=== PATIENT | male | born 1940 | race Caucasian/White ===

== ENCOUNTER → 2018-05-17 | Outpatient (CLI) | payer OTHER, BC | LOC: FIMAGING 16:27 | PROVIDERS: ATTEND Family Medicine | DX: R91.8 Other nonspecific abnormal finding of lung field (principal); R06.02 Shortness of breath ==

== ENCOUNTER → 2018-07-14 | Outpatient (CLI) | payer OTHER, BC | LOC: BHFA 13:00 | PROVIDERS: ATTEND Internal Medicine Cardiovascular Disease | DX: J45.909 Unspecified asthma, uncomplicated (principal) | CPT/HCPCS: 94060; 94070; 94726; 94729; J7674 ==

== ENCOUNTER 2019-03-13 08:08 | Inpatient (IN) | payer OTHER, BC ==
[2019-03-08 16:49] LABS: PLATELET COUNT 327 10^3/uL (150-400)
--- NOTE | 2019-03-10 16:49 | GHP ---
[f rep st] PREOP HISTORY AND PHYSICAL DATE OF ADMISSION: 03/13/2019 Date of planned procedure is 02/22/2019. PLANNED PROCEDURE: Right total knee arthroplasty. HISTORY OF PRESENT ILLNESS: Percy is a very pleasant 78-year-old male with ongoing bilateral knee, bilateral shoulder problems. Right knee is the worst. He feels that it locks, catches, and gives out on him at times. X-rays show severe tricompartment osteoarthritis. Decision was made to proceed with a total knee arthroplasty on the right. PAST MEDICAL HISTORY: 1. Asthma. 2. Depression. 3. Reflux. 4. Hypertension. 5. Sleep apnea. PAST SURGICAL HISTORY: None. MEDICATIONS: See attached medication list. ALLERGIES: No known drug allergies. SOCIAL HISTORY: He lives in assisted living. He does not smoke, does not drink alcohol. REVIEW OF SYSTEMS: No shortness of breath or chest pain. Otherwise, review of systems is unremarkable. PHYSICAL EXAM: VITALS: A 78-year-old male, 5 feet 8 inches tall, weighs 215 pounds. Blood pressure is 128/69, heart rate is 74. GENERAL: Alert and oriented x3. HEENT: Normocephalic, atraumatic. Extraocular muscles intact. NECK: Supple. There is no lymphadenopathy. No JVD. CHEST: Clear to auscultation. CARDIOVASCULAR: Regular rate and rhythm. ABDOMEN: Soft, nontender, nondistended. EXTREMITIES: Focusing on the right knee: Slight varus alignment, which is correctable passively. He has 120 degrees of flexion , lacks 10 degrees of extension. Calf is soft. 1+ dorsalis pedis and posterior tibial pulses. 5/5 ankle dorsiflexion, plantar flexion, and strength. IMAGING: X-rays, 3 views of the knee are reviewed: Severe tricompartment osteoarthritis with slight varus alignment. ASSESSMENT: Severe right knee osteoarthritis. PLAN: We will proceed with a total knee arthroplasty. Risks and benefits including postoperative stiffness, blood clots, infection were discussed. He understands these risks, wished to proceed. Plan on surgery Wednesday at the hospital. /[id number]/MODL MTDD
[~2019-03-13 08:08] MED LIST: LIDOCAINE 2% 5 ML SDV ONE; PROPOFOL 200 MG/20 ML VIAL ONE; PROPOFOL/EMULSION 500 MG/50 ML BOTTLE IV ONE; ROPIVACAINE HCL 150 MG/30 ML INJ ONE
[2019-03-13] MEDS ORDERED: BUPIVACAINE/DEXTROSE 7.5MG/ML 2 ML SPINAL AMP SP ONE ×2 (08:10→09:53)
[2019-03-13] MEDS ORDERED: ceFAZolin 2 GM/DEXTROSE 100 ML IV ONE (08:19)
[2019-03-13] MEDS ORDERED: LIDOCAINE 1% 2 ML INJ ID PRN (08:20)
[2019-03-13] MEDS ORDERED: LR 1,000 ML IV ONE (08:20)
--- NOTE | 2019-03-13 08:44 | PDHPUP ---
History & Physical Update H&P update statement: This history and physical update is based on an assessment of the patient which was completed after admission or registration (within 24 hours), but prior to the surgery/procedure. H&P update: H&P reviewed & patient examined, no change in patient's condition since H&P completed
[2019-03-13] MEDS ORDERED: MIDAZOLAM 2 MG/2 ML VIAL IVP ONE (08:50)
--- NOTE | 2019-03-13 08:50 | PDANEPAE ---
ANE Past Medical History - Cardiovascular History Hx Hypertension: Yes Hx Arrhythmias: No Hx Chest Pain: No Hx Coronary Artery / Peripheral Vascular Disease: No Hx CHF / Valvular Disease: No Hx Palpitations: No - Pulmonary History Hx COPD: No Hx Asthma/Reactive Airway Disease: No Hx Recent Upper Respiratory Infection: Yes Hx Sleep Apnea: Yes Sleep Apnea Screening Result - Last Documented: Positive Pulmonary History Comment: asthma, 2 weeks ago cold and cough started and still coughing , ED visit may 2018 cxr for shortness of breath, wheezing - Neurologic History Hx Cerebrovascular Accident: No Hx Seizures: No Hx Dementia: No - Endocrine History Hx Diabetes: No - Renal History Hx Renal Disorders: Yes Renal History Comment: prostate seeds for cancer, BPH - Liver History Hx Hepatic Disorders: No - Neurological & Psychiatric Hx Hx Neurological and Psychiatric Disorders: Yes Neurological / Psychiatric History Comment: depression and anxiety - Cancer History Hx Cancer: Yes Cancer History Comment: prostate - Congenital Disorder History Hx Congenital Disorders: No - GI History Hx Gastrointestinal Disorders: Yes Gastrointestinal History Comment: gerd's, bowel resection - Other Health History Other Health History: scoliosis affecting diaphragm, lumbar stenosis, sciatica, chronic pain - Chronic Pain History Chronic Pain: Yes (lower back) - Surgical History Prior Surgeries: bowel resection, right shoulder cyst removed and pilondial cyst as high schooler, prostate seeds ANE Review of Systems Review of Systems: - Exercise capacity METS (RN): 3 METS ANE Patient History - Allergies Allergies/Adverse Reactions: erythromycin base Allergy (Verified 03/13/19 08:39) Other-Enter Comments - Home Medications Home Medications: Gabapentin [Neurontin 300 MG (*)] 300 mg PO HS 02/28/19 [Last Taken 03/12/19] Ibuprofen [Motrin (*)] 200 mg PO TID PRN 02/28/19 [Last Taken 03/06/19] Ipratropium [Atrovent Hfa (*)] 1 puffs IH Q6HRS PRN 02/28/19 [Last Taken ] Multivitamins [Multivitamin (*)] 1 each PO DAILY 02/28/19 [Last Taken 03/12/19] RX: FENOFIBRATE 160 mg PO HS 02/28/19 [Last Taken 03/12/19] RX: Herbals/Supplements -Info Only 1 ea PO DAILY 02/28/19 [Last Taken 03/06/19] RX: Omeprazole 20 mg PO DAILY PRN 02/28/19 [Last Taken 03/12/19] Tramadol 37.5mg 1 tab PO Q4HRS PRN 02/28/19 [Last Taken 03/12/19] amLODIPine BESYLATE [Norvasc 10 mg (*)] 10 mg PO HS 02/28/19 [Last Taken ] - NPO status NPO Since - Liquids (Date): 03/13/19 NPO Since - Liquids (Time): 00:00 NPO Since - Solids (Date): 03/13/19 NPO Since - Solids (Time): 00:00 - Smoking Hx Smoking Status: Former smoker - Family Anes Hx Family Hx Anesthesia Complications: none ANE Labs/Vital Signs - Labs Result Diagrams: 03/08/19 16:22 - Vital Signs Blood Pressure: 149/92 Heart Rate: 84 Respiratory Rate: 21 O2 Sat (%): 92 Height: 172.72 cm Weight: 95.708 kg ANE Physical Exam - Airway Neck exam: FROM Mallampati Score: Class 2 Mouth exam: poor dentition - Pulmonary Pulmonary: no respiratory distress, no rales or rhonchi, clear to auscultation - Cardiovascular Cardiovascular: regular rate and rhythym, no murmur, rub, or gallop - ASA Status ASA Status: II ANE Anesthesia Plan Anesthesia Plan: spinal Regional Anesthesia: single shot NB Total IV Anesthesia: Yes
[2019-03-13] MEDS ORDERED: ceFAZolin 1 GM/5 ML SYR ONE ×2 (08:51→09:43)
[2019-03-13] MEDS ORDERED: MIDAZOLAM 2 MG/2 ML VIAL ONE (08:58)
--- NOTE | 2019-03-13 09:04 | POSTANESTH ---
Post Anesthetic Evaluation Cardiovascular Status: Normal, Stable Respiratory Status: Normal, Stable Level of Consciousness/Mental Status: Can Participate in Eval Pain Control: Adequate, Prn Tx Ordered Nausea/Vomiting Control: Adequate, Prn Tx Ordered Complications Possibly Related to Anesthesia: None Noted
[2019-03-13] MEDS ORDERED: BUPIVACAINE/EPI 0.5% 30 ML SDV ONE (09:07)
[2019-03-13] MEDS ORDERED: ePHEDrine SULFATE 25 MG/5 ML SYR ONE (09:42)
[2019-03-13] MEDS ORDERED: oxyCODONE IR 5 MG TAB PO PRN (09:51)
[2019-03-13] MEDS ORDERED: ONDANSETRON 4 MG/2 ML VIAL IVP PRN ×2 (09:51→10:35)
[2019-03-13] MEDS ORDERED: fentaNYL 100 MCG/2 ML INJ IVP PRN (09:51)
[2019-03-13] MEDS ORDERED: METOCLOPRAMIDE 10 MG/2 ML VIAL IVP PRN ×2 (09:51→10:35)
[2019-03-13] MEDS ORDERED: NALOXONE HCL 0.4 MG/ML INJ IVP PRN (09:51)
[2019-03-13] MEDS ORDERED: NS 500 ML IV PRN (09:51)
[2019-03-13] MEDS ORDERED: PROMETHAZINE HCL 25 MG/ML INJ IVP PRN ×2 (09:51→10:35)
[2019-03-13] MEDS ORDERED: LR 500 ML IV PRN (09:51)
[2019-03-13] MEDS ORDERED: HYDROmorphONE/DILAUDID 1 MG/ML INJ IVP PRN (09:51)
[2019-03-13] MEDS ORDERED: PHENYLEPHRINE HCL 100 MCG/ML SYR IVP PRN (09:51)
[2019-03-13] MEDS ORDERED: ALBUTEROL 3 ML DEYVIAL IH PRN (09:51)
[2019-03-13] MEDS ORDERED: PROPOFOL/EMULSION 500 MG/50 ML BOTTLE IV ONE (09:53)
[2019-03-13] MEDS ORDERED: PROPOFOL 200 MG/20 ML VIAL ONE (09:53)
[2019-03-13] MEDS ORDERED: TEMAZEPAM 15 MG CAP PO PRN (10:35)
[2019-03-13] MEDS ORDERED: BISACODYL 10 MG SUPP PR PRN (10:35)
[2019-03-13] MEDS ORDERED: POLYETHYLENE GLYCOL 3350 17 GM PKT PO PRN (10:35)
[2019-03-13] MEDS ORDERED: diphenhydrAMINE 25 MG CAP PO PRN (10:35)
[2019-03-13] MEDS ORDERED: LACTULOSE 20 GM/30 ML UDCUP PO PRN (10:35)
[2019-03-13] MEDS ORDERED: PROMETHAZINE HCL 25 MG SUPPR PR PRN (10:35)
[2019-03-13] MEDS ORDERED: MAGNESIUM HYDROXIDE 30 ML UDCUP PO PRN (10:35)
[2019-03-13] MEDS ORDERED: ONDANSETRON DISINTEGRATING 4 MG TAB PO PRN (10:35)
[2019-03-13] MEDS ORDERED: DIPHENOXYLATE/ATROPINE LOMOTIL 1 TAB PO PRN (10:35)
[2019-03-13] MEDS ORDERED: IPRATROPIUM HFA INHALER IH PRN (10:38)
--- NOTE | 2019-03-13 10:42 | POSTOPPROG ---
Post Op Note Date of Operation: 03/13/19 Surgeon: Sherman Bender Pension Examiner: Aleyda Richardson Anesthesia: GET(General Endotracheal), Spinal Pre-op Diagnosis: Right knee osteoarthritis Post-op Diagnosis: Right knee osteoarthritis Procedure: Right total knee arthroplasty Inf/Abcess present in the surg proc area at time of surgery?: No Depth: Deep Incisional (Fascial) EBL: Minimal
[2019-03-13] MEDS ORDERED: LR 1,000 ML IV SCH (11:00)
--- NOTE | 2019-03-13 11:11 | PDMN ---
Medical Necessity [place] [facility] [place], Total, A-2 days: 78 yo s/p R TKA , IP status for advanced age, hx HTN, asthma, recent URI, prostate ca, bowel resect, depression/anxiety, lumbar stenosis, scoliosis affecting diaphragm, sciatica, chronic pain.
--- NOTE | 2019-03-13 11:25 | GOP ---
[f rep st] OPERATIVE REPORT DATE OF OPERATION: 03/13/2019 SURGEON: Sherman Bender MD DRIVE IN TELLER: Aleyda Richardson PA-C ANESTHESIA: Spinal with an adductor canal block and monitored anesthesia care. ANESTHESIOLOGIST: Dr. Dalton PREOPERATIVE DIAGNOSIS: Osteoarthritis, right knee. POSTOPERATIVE DIAGNOSIS: Osteoarthritis, right knee. PROCEDURE PERFORMED: Right total knee arthroplasty. FINDINGS: INDICATIONS: The patient is a 78-year-old male with longstanding bilateral knee pain, right greater than left. Decision has been made to proceed with a total knee arthroplasty. DESCRIPTION OF PROCEDURE: After appropriate informed consent was obtained, patient was taken to the operating room, placed supine on the operating table. Time-out was performed. Patient was identifie d. Correct site was identified. He received 2 g of Ancef. Following a spinal anesthetic, monitored anesthesia care was administered. Right lower extremity was prepped and draped in usual sterile fas hion. I exsanguinated the limb, inflated the tourniquet to 250 mmHg. I had a standard midline incision along with medial parapatellar arthrotomy. Patella was everted. R emaining medial, lateral meniscus were removed. Flexed the knee up, removed ACL, PCL. He showed are as of full-thickness loss on the patella, distal femur, and tibia. We then used our intramedullary f emoral guide and resected 10 mm off the distal femur. Then, using our tibial extramedullary guide, r esected 7 mm off the medial side. Spacer blocks were used to determine full extension, good mediolat eral stability. We then sized the femur to a size 5, pinned our 4-in-[address], made our distal femoral cuts, followed by pinning our box cutting guide in place, and we cut our box, dril led our lug holes. We then sized the tibia to a 4, the 5 overhung on the AP dimension, pinned that i n place and trialed a 9 poly with good extension, good mediolateral stability. We then used our keel punch and punched our keel. Trial implants were removed and we drilled our 4 towboat pilot holes in the tib ia. We then turned our attention to the patella. This measured 24 mm thick and resected 10 mm off the pa tella. This sized to a size 38 and we drilled our lug holes there. We then irrigated the wound with pulsatile lavage. I then press-fit the tibia, followed by femur, snapped our [address], an d press-fit the patella again good extension, 135 degrees of flexion, good mediolateral stability, an d the patella tracked centrally. Wound was irrigated a final time. Extensor mechanism was closed with 0 Vicryl, superficial layers cl osed with 2-0 Vicryl. Skin was closed with a subcuticular Quill stitch. Steri-Strips were applied t o the skin. I instilled an additional 15 mL of 0.5% Marcaine with epinephrine into the knee. The pa tient was awakened from anesthesia, taken to recovery room in satisfactory condition. Dr. Sha broderick ill administer an adductor canal block in the recovery room. Aleyda Richardson's assistance was required throughout the entire case. IMPLANTS USED: A Luigi posterior stabilized press-fit size 5 femur, size 4 press-fit tibia with a 9 mm poly insert, and asymmetric 30 mm press-fit patella. TOTAL TOURNIQUET TIME: 59 minutes at 250 mmHg. COMPLICATIONS: None. DRAINS: None. /[id number]/MODL
[2019-03-13] MEDS: KETOROLAC 15 MG/1 ML SDV IVP SCH ×2 (12:27→18:19)
[2019-03-13] MEDS: oxyCODONE IR 5 MG TAB PO PRN ×2 (14:23→22:28)
--- NOTE | 2019-03-13 14:25 | SOAPPROG ---
SOAP Progress Note Assessment/Plan: Assessment: s/p right TKA - procedure earlier this morning Plan: Begin d/c planning - likely home tomorrow - lives independently at assisted living Continue PT/OT - WBAT Continue oral pain medication Continue VTE ppx - SCDs, aspirin 325 mg once daily Subjective: Patient states he is feeling good, but the right knee is starting to feel a bit stiff. He is hoping to go home tomorrow; he lives in an assisted living facility. Reports there is PT and OT at the facility and he will begin this once he gets home. He denies SOB, CP, fever, chills, nausea. He has not urinated yet. Objective: Vital Signs Temp Pulse Resp BP Pulse Ox 36.4 C 70 13 116/70 94 03/13/19 13:46 03/13/19 13:46 03/13/19 13:46 03/13/19 13:46 03/13/19 13:46 Laboratory Results 03/08/19 16:22 03/12/19 03/13/19 03/14/19 05:59 05:59 05:59 Intake Total 930 Output Total 10 Balance 920 Patient resting comfortably in bed, no acute distress. His daughter is present at the bedside. RLE: Surgical wound dressings are clean, dry and intact. Lower leg compartments are soft and nontender. He can actively DF and PF the right foot and great toe. Grossly NVI distally. ICD10 Worksheet Patient Problems: Problems Problem Status Onset Unilateral primary osteoarthritis, right knee Acute
[2019-03-13] MEDS: ACETAMINOPHEN 325 MG TAB PO SCH ×2 (15:52→22:27)
[2019-03-13] MEDS: ceFAZolin 2 GM/DEXTROSE 100 ML IV SCH (17:11)
[2019-03-13] MEDS: CYCLOBENZAPRINE 10 MG TAB PO PRN (17:19)
[2019-03-13] MEDS: FAMOTIDINE 20 MG TAB PO SCH (22:28)
[2019-03-13] MEDS: FENOFIBRATE 145 MG TAB PO SCH (22:28)
[2019-03-13] MEDS: GABAPENTIN 300 MG CAP PO SCH (22:28)
[2019-03-13] MEDS: SENNOSIDES/DOCUSATE SODIUM TAB PO SCH (22:30)
[2019-03-13] MEDS: ASPIRIN 325 MG TAB PO SCH (22:47)
[2019-03-14] MEDS: KETOROLAC 15 MG/1 ML SDV IVP SCH ×2 (00:31→06:02)
[2019-03-14] MEDS: ceFAZolin 2 GM/DEXTROSE 100 ML IV SCH (00:31)
[2019-03-14] MEDS: CYCLOBENZAPRINE 10 MG TAB PO PRN (04:35)
[2019-03-14] MEDS: ACETAMINOPHEN 325 MG TAB PO SCH ×4 (04:35→22:54)
[2019-03-14] MEDS: oxyCODONE IR 5 MG TAB PO PRN ×3 (04:35→22:54)
--- NOTE | 2019-03-14 08:58 | SOAPPROG ---
SOAP Progress Note Assessment/Plan: Assessment: s/p right TKA - POD 1 Plan: Continue d/c planning - possibly home today - lives independently at assisted living - he would like to see how he feels later this morning after PT Continue PT/OT - WBAT Continue oral pain medication Continue VTE ppx - SCDs, aspirin 325 mg once daily Subjective: Patient states the right knee is sore, but the pain medication is helping to control it. Currently at this time he is unsure about going home today. He would like to see how he feels after PT and how he progresses throughout the morning. He denies SOB, CP, fever, chills, nausea. Objective: Vital Signs Temp Pulse Resp BP Pulse Ox 36.9 C 66 14 98/56 L 94 03/14/19 08:08 03/14/19 08:08 03/14/19 08:08 03/14/19 08:08 03/14/19 08:08 Laboratory Results 03/14/19 04:23 03/13/19 03/14/19 03/15/19 05:59 05:59 05:59 Intake Total 2719 Output Total 2060 Balance 659 Patient resting comfortably in bed, no acute distress. RLE: Surgical wound dressings are clean, dry and intact. Lower leg compartments are soft and nontender. He can actively DF and PF the right foot and great toe. Grossly NVI distally. ICD10 Worksheet Patient Problems: Problems Problem Status Onset Unilateral primary osteoarthritis, right knee Acute
[2019-03-14] MEDS: ASPIRIN 325 MG TAB PO SCH (09:42)
[2019-03-14] MEDS: FAMOTIDINE 20 MG TAB PO SCH ×2 (09:42→21:12)
[2019-03-14] MEDS: PANTOPRAZOLE SODIUM 40 MG TAB PO SCH (09:42)
[2019-03-14] MEDS: SENNOSIDES/DOCUSATE SODIUM TAB PO SCH ×2 (09:42→21:12)
--- NOTE | 2019-03-14 10:11 | ASMTCASEMG ---
Living Arrangements What is your living Answers: Alone arrangement? Who do you live with? Type Of Residence What kind of residence do Answers: Apartment you live in? Discharge Plan Comments Coordination Status Comments Notes: Patient is a 78yo who lives at [facility] who comes to [facility] for a total knee arthroplasty on the right. OT/PT have been ordered. PT is recommending home care presently but they say patient needs another day to see how he progresses. D/C plan TBD. CM will follow. Date Signed: 03/14/2019 10:10 AM Electronically Signed By:Maryann López LCSW
[2019-03-14] MEDS: MULTIVITAMINS 1 EACH TAB PO SCH (10:48)
[2019-03-14] MEDS: FENOFIBRATE 145 MG TAB PO SCH (21:12)
[2019-03-14] MEDS: GABAPENTIN 300 MG CAP PO SCH (21:12)
[2019-03-15] MEDS: ACETAMINOPHEN 325 MG TAB PO SCH ×2 (04:57→11:26)
[2019-03-15] MEDS: MULTIVITAMINS 1 EACH TAB PO SCH (09:18)
[2019-03-15] MEDS: ASPIRIN 325 MG TAB PO SCH (09:18)
[2019-03-15] MEDS: FAMOTIDINE 20 MG TAB PO SCH ×2 (09:18→21:12)
[2019-03-15] MEDS: SENNOSIDES/DOCUSATE SODIUM TAB PO SCH ×2 (09:18→21:25)
[2019-03-15] MEDS: PANTOPRAZOLE SODIUM 40 MG TAB PO SCH (09:19)
[2019-03-15] MEDS: traMADol 50 MG TAB PO PRN ×2 (09:43→11:24)
--- NOTE | 2019-03-15 09:48 | SOAPPROG ---
SOAP Progress Note Assessment/Plan: Assessment: s/p right TKA - POD 2 Plan: Continue d/c planning - after PT/OT, SNF was recommended. Patient is agreeable to this since he is having a lot of difficulty walking, performing ADLs. He will need to stay another night. Likely d/c to SNF tomorrow Continue PT/OT - WBAT Continue oral pain medication - oxycodone making him drowsy, lightheaded. Tramadol was ordered Continue VTE ppx - SCDs, aspirin 325 mg once daily Subjective: Patient states his right knee is quite sore, but the pain medication is making him feel lightheaded. He has taken Tramadol at home and does not get this side effect. He would like to try taking Tramadol instead of oxycodone. Patient noticed difficulty walking with PT and he is agreeable to going to a SNF. He feels that going home and being along would be too much for him at this time. He denies shortness of breath, chest pain, fever, chills. Objective: Vital Signs Temp Pulse Resp BP Pulse Ox 36.7 C 82 18 135/64 H 93 03/15/19 07:29 03/15/19 07:29 03/15/19 07:29 03/15/19 07:29 03/15/19 07:29 Laboratory Results 03/15/19 04:23 03/14/19 03/15/19 03/16/19 05:59 05:59 05:59 Intake Total 2719 Output Total 2060 350 Balance 659 -350 Patient sitting comfortably in his chair, no acute distress. RLE: Wound dressings are clean, dry and intact. Lower leg compartments are soft and nontender. He can actively DF and PF his right foot and great toe against resistance. Grossly NVI distally. ICD10 Worksheet Patient Problems: Problems Problem Status Onset Unilateral primary osteoarthritis, right knee Acute
[2019-03-15] MEDS: HYDROCODONE/APAP 5/325 TAB PO PRN ×2 (14:38→21:18)
[2019-03-15] MEDS ORDERED: ACETAMINOPHEN 325 MG TAB PO PRN (15:00)
--- NOTE | 2019-03-15 15:12 | ASMTCMCOM ---
CM Note CM Note Notes: Today PT/OT rec SNF, pt agrees. Several SNF referrals sent in Allscripts. Pt chooses [facility] and they can accept pt tomorrow. D/c plan of care: [facility] tomorrow Date Signed: 03/15/2019 03:11 PM Electronically Signed By:DAMARIS Hall
[2019-03-15] MEDS: GABAPENTIN 300 MG CAP PO SCH (21:12)
[2019-03-15] MEDS: FENOFIBRATE 145 MG TAB PO SCH (21:12)
[2019-03-16] MEDS: HYDROCODONE/APAP 5/325 TAB PO PRN ×2 (04:25→10:12)
[2019-03-16 07:47] VITALS: BP 134/64
[2019-03-16] MEDS: ASPIRIN 325 MG TAB PO SCH (08:16)
[2019-03-16] MEDS: FAMOTIDINE 20 MG TAB PO SCH (08:17)
[2019-03-16] MEDS: PANTOPRAZOLE SODIUM 40 MG TAB PO SCH (08:17)
[2019-03-16] MEDS: MULTIVITAMINS 1 EACH TAB PO SCH (08:17)
[2019-03-16] MEDS: SENNOSIDES/DOCUSATE SODIUM TAB PO SCH (08:43)
--- NOTE | 2019-03-16 09:53 | PDIAF ---
- Diagnosis Diagnosis: Right knee osteoarthritis Code Status: Full Code - Medication Management Discharge Medications: electronically signed and located in the Home Medication List. - Orders Services needed: Registered Nurse, Physical Therapy, Occupational Therapy Diet Recommendation: no restrictions on diet Diet Texture: Regular Texture Diet Wound Care Instructions: Keep dressing clean and dry for 7 days. In 7 days you may remove the dressing. Incision may get wet at that time, however, no submerging. Activity/Weight Bearing Restrictions: WBAT Additional Instructions: WBAT{weight bearing as tolerated} RLE {right lower extremity]. Keep dressing clean and dry for 7 days. In 7 days you may remove the dressing. Incision may get wet at that time, however, no submerging. Aspirin 325mg 1 po {oral} QD { every day} x 14 days. Initiate PT {physical therapy}and HEP {home exercise program} for ROM {range of motion}, gait training, and strengthening. Follow up in office in 14 days for repeat evaluation and wound check. - Follow Up Care Current Providers and Referrals: Sherman Bender MD [Medical Doctor] - follow up in 2 weeks RADHA QUILES [Primary Care Provider] -
--- NOTE | 2019-03-16 12:21 | SOAPPROG ---
SOAP Progress Note Assessment/Plan: Assessment: s/p right TKA - POD 3 Plan: d/c to SNF Continue PT/OT - WBAT Continue oral pain medication - [place], tramadol, tylenol Continue VTE ppx - SCDs, aspirin 325 mg once daily Subjective: Patient states he is feeling better and feels ready to go to the SNF. He denies SOB, CP, fever, chills. Objective: Vital Signs Temp Pulse Resp BP Pulse Ox 36.9 C 78 16 134/64 H 94 03/16/19 07:45 03/16/19 07:45 03/16/19 07:45 03/16/19 07:45 03/16/19 07:45 Laboratory Results 03/15/19 04:23 03/15/19 03/16/19 03/17/19 05:59 05:59 05:59 Intake Total 350 Output Total 350 650 Balance -350 -300 Patient sitting comfortably in his chair, no acute distress. RLE: Wound dressings are clean, dry and intact. Lower leg compartments are soft and nontender. He can actively DF and PF his right foot and great toe against resistance. Grossly NVI distally. ICD10 Worksheet Patient Problems: Problems Problem Status Onset Unilateral primary osteoarthritis, right knee Acute
--- NOTE | 2019-03-16 12:22 | PDDCSUM ---
Discharge Summary Discharge Summary: ADMISSION DIAGNOSIS: Right knee severe degenerative arthritis DISCHARGE DIAGNOSIS: Right knee severe degenerative arthritis OPERATION PERFORMED: March 13, 2019 Right total knee arthroplasty POSTOPERATIVE COMPLICATIONS: None CONDITION ON DISCHARGE: Improved HPI: The patient is a 78 year old male who has end-stage arthritis of his right knee. Clinical and radiographic features are consistent with this. Patient has failed attempts at conservative management, therefore, recommended operative right total knee replacement. DESCRIPTION OF HOSPITAL COURSE: The patient was admitted to the hospital on the morning of surgery and underwent a right total knee arthroplasty. Postoperatively, patient was treated with multimodal DVT prophylaxis, including aspirin, MARQUITA hose and SCDs. Patient was seen by PT and made good progress with ambulation and stairs. His most recent H&H was 10.4/31.6. Patient was able to void spontaneously. At the time of discharge, patient was afebrile, wound was clean and dry. Patient is walking with a walker. DISPOSITION: The patient is discharged to a SNF because he requires more assistance and does not have any support at his home. Patient may progress to full weightbearing on the right lower extremity as tolerated. Aspirin 325 mg once daily x 2 weeks. Patient has prescription for [place] for pain control. He will restart his normal dose of Tramadol and can take OTC Tylenol for pain as well. The patient will be seen by Dr. Bender's office in approximately 2 weeks. If there are any problems, patient is to call office.
--- NOTE | 2019-03-16 13:53 | ASMTLACE ---
LACE Length of stay for Answers: 4-6 days current admission Acuity / Level of Answers: Yes Care: Did the patient have an inpatient admission? Comorbidities - select Answers: Any tumor (including all that apply lymphoma or leukemia) Opioid dependence / Chronic pain Other Notes: HTN # of Emergency department Answers: 0 visits in the last 6 months Social determinants Answers: Mental health diagnosis (anxiety, depression, pers onality disorders, etc.) Score: 17 Date Signed: 03/16/2019 01:53 PM Electronically Signed By:DAMARIS Hall
--- NOTE | 2019-03-16 13:55 | ASMTCMCOM ---
CM Note CM Note Notes: Pt medically stable for d/c to [facility] SNF. WC transport arranged for 10:30. RN Beatris called report. Orders sent in [employer]. Date Signed: 03/16/2019 01:54 PM Electronically Signed By:DAMARIS Hall
--- NOTE | 2019-03-17 10:47 | ASDISCHSUM ---
Discharge Information Plan Status:SNF Medically Cleared to Leave: Discharge Date:03/16/2019 10:40 AM CM D/C Disposition: ADT D/C Disposition:[facility] Facility Projected Discharge Date:03/16/2019 11:00 AM Transportation at D/C: Discharge Delay Reason: Follow-Up Date:03/16/2019 11:00 AM Discharge Slot: Final Diagnosis: Placement Information Referral Type:*Custodial/SNF Referral ID:[id number] Provider Name:[facility] Address 1:[address] Address 2: [facility]:[place] Selection Factors: State:[place] Patient Contact Information Contact Name:JASPALLORRAINE Relationship:Daughter Address: Work Phone: [facility]:[place] Alternate Phone: State/Zip Code:[place] [address] Email: Financial Information Financial Class:Medicare Primary Plan Desc:MEDICARE INPATIENT Primary Plan Number:[id number] Secondary Plan Desc:[employer] [facility] Secondary Plan Number:[id number] Assessment Information LACE LACE Length of stay for Answers: 4-6 days current admission Acuity / Level of Answers: Yes Care: Did the patient have an inpatient admission? Comorbidities - select Answers: Any tumor (including all that apply lymphoma or leukemia) Opioid dependence / Chronic pain Other Notes: HTN # of Emergency department Answers: 0 visits in the last 6 months Social determinants Answers: Mental health diagnosis (anxiety, depression, pers onality disorders, etc.) Score: 17 Date Signed: 03/16/2019 01:53 PM Electronically Signed By:DAMARIS Hall [facility] CM Assessment Living Arrangements What is your living Answers: Alone arrangement? Who do you live with? Type Of Residence What kind of residence do Answers: Apartment you live in? Discharge Plan Comments Coordination Status Comments Notes: Patient is a 78yo who lives at [facility] who comes to [facility] for a total knee arthroplasty on the right. OT/PT have been ordered. PT is recommending home care presently but they say patient needs another day to see how he progresses. D/C plan TBD. CM will follow. Date Signed: 03/14/2019 10:10 AM Electronically Signed By:Maryann López LCSW [facility] CM Progress Note CM Note CM Note Notes: Today PT/OT rec SNF, pt agrees. Several SNF referrals sent in [employer]. Pt chooses [facility] and they can accept pt tomorrow. D/c plan of care: [facility] tomorrow Date Signed: 03/15/2019 03:11 PM Electronically Signed By:DAMARIS Hall [facility] CM Progress Note CM Note CM Note Notes: Pt medically stable for d/c to [facility]. WC transport arranged for 10:30. FLORENTINO Spear called report. Orders sent in [email or web address]. Date Signed: 03/16/2019 01:54 PM Electronically Signed By:DAMARIS Hall Intervention Information Intervention Type:*IM-Signed Date of Service:03/16/2019 10:09 AM Patient Type:Inpatient Staff Member:Jana Cazares Hours: Discipline: Severity: Comment:
== END 2019-03-16 10:40 | DRG 470 ==
LOC: F1N 08:08 → F3N 11:40
PROVIDERS: ADMIT Orthopaedic Surgery; ATTEND Orthopaedic Surgery
PROC: 0SRC0JA Replacement of Right Knee Joint with Synthetic Substitute, Uncemented, Open Approach (ICD-10-PCS; principal; 2019-03-13 09:30)
DX: M17.11 Unilateral primary osteoarthritis, right knee (principal); J45.909 Unspecified asthma, uncomplicated; F32.9 Major depressive disorder, single episode, unspecified; F41.9 Anxiety disorder, unspecified; K21.9 Gastro-esophageal reflux disease without esophagitis; I10 Essential (primary) hypertension; G47.30 Sleep apnea, unspecified
CPT/HCPCS: 97110-GP; 97116-GP; 97161-GP; 97166-GO; 97530-GO; 97530-GP; 97535-GO; J0690; J1885; J2250; J2704; J2795